=== PATIENT | female | born 1955 | race Caucasian/White ===

== ENCOUNTER → 2020-10-15 13:39 | Outpatient (CLI) | payer OTHER, SELFPAY ==
--- NOTE | 2020-10-15 | DI.MRI.S_ITS ---
PROCEDURE: MR LUMBAR SPINE WO CON INDICATIONS: Spinal stenosis, lumbar region with neurogenic cla TECHNIQUE: Noncontrast sagittal T1 spin echo and T2 fast echo, sagittal STIR, axial T1 and T2 fast spin echo through the lumbar spine. In cases with scoliosis, additional coronal T2 fast spin echo may be performed. COMPARISON: [facility], CR, XR LUMBAR SPINE WITH OLBIQUES PLUS FLEXION EXTENSION, 09/22/2020, 15:52. FINDINGS: Image quality: Excellent. Alignment and Curvature: There is normal bony alignment. Bone Marrow: Marrow is of normal overall signal. Increased T1 and T2 signal is present at T11 and S2 consistent with hemangioma. No acute vertebral body compression fractures. Spinal Cord: Conus medullaris terminates at the L1-L2 level. Visualized cord demonstrates normal signal and size. Tarlov cyst is noted at S1-S2. Paraspinous Soft Tissues: No paravertebral masses. Discs: [id number] desiccation is present throughout the lumbar spine most severe at L5-S1. L1-L2: Mild disc bulge without spinal stenosis or foraminal narrowing. Mild facet hypertrophy. L2-L3: Mild disc bulge without spinal stenosis. Minimal to mild right and minimal left foraminal narrowing with facet and ligamentum flavum hypertrophy. Minimal epidural lipomatosis. L3-L4: Mild disc bulge without spinal stenosis. Minimal bilateral foraminal narrowing with facet and ligamentum flavum hypertrophy. L4-L5: Mild disc bulge with mild spinal stenosis. Utci-em-dcuhbwan left and mild right foraminal narrowing with facet and ligamentum flavum hypertrophy. L5-S1: Mild disc bulge without spinal stenosis. Mild left foraminal narrowing. Facet and ligamentum flavum hypertrophy are present. IMPRESSION: 1. Multilevel foraminal narrowing most notable at L4-5 secondary to facet/ligamentum flavum arthropathy. 2. Multilevel disc bulges as well as spinal stenosis lateral most notable at L4-5 secondary to disc bulge with contributing effect facet/ligamentum flavum arthropathy. Dictated by: Siria Ortega M.D. on 10/15/2020 at 17:11 Approved by: Siria Ortega M.D. on 10/15/2020 at 17:15
== END ==
PROVIDERS: PCP Internal Medicine; Referring Provider Physical Medicine & Rehabilitation Pain Medicine; Visit Provider Physical Medicine & Rehabilitation Pain Medicine
DX: M48.062 Spinal stenosis, lumbar region with neurogenic claudication (principal); M47.816 Spondylosis without myelopathy or radiculopathy, lumbar region; M51.26 Other intervertebral disc displacement, lumbar region
CPT/HCPCS: 72148

== ENCOUNTER → 2021-04-20 12:43 | Outpatient (CLI) | payer MEDICARE, OTHER, SELFPAY ==
--- NOTE | 2021-04-20 | DI.MRI.S_ITS ---
PROCEDURE: MR HIP RT W CON INDICATIONS: RIGHT HIP PAIN TECHNIQUE: After the administration of 10 mL of dilute intra-articular Gadolinium contrast, coronal STIR of the bony pelvis; coronal and oblique axial T1 spin echo with fat saturation, axial T2 fast spin echo with fat saturation, sagittal T1 spin echo with and without fat saturation of the involved hip. COMPARISON: [facility], CR, XR PELVIS WITH BILATERAL LATERAL HIPS, 04/07/2021, 14:45. [facility], [place], [place] HIP INJECTION MR/CT RT, 04/20/2021, 14:20. FINDINGS: Image quality: Excellent. Bones and joints: Bone marrow of the pelvic ring and proximal femurs show normal signal throughout. No intraosseous lesions or fractures. No avascular necrosis of the femoral heads. Disc desiccation and facet hypertrophy are seen in the included lower lumbar spine. Tendons and ligaments: There is mild loose stool gluteus medius and minimus tendinosis with a trace overlying trochanteric bursal effusion. A large contralateral left-sided trochanteric bursal effusion is seen on full [id number] coronal images. The proximal iliotibial band appears intact. The iliopsoas tendon appears intact, without adjacent bursal fluid collections. The origin of the hamstring tendon is intact at the ischial tuberosity. The direct and indirect heads of the rectus femoris muscle origin appear intact. Labrum and cartilage: The acetabular labrum appears intact in the absence of intra-articular contrast. A normal variant sublabral foramen is seen at the anterior chondrolabral junction. Cartilage surface of the femoral head appears of normal thickness. There is normal morphology of the femoral head and the acetabulum. Soft tissues: Visualized muscles demonstrate normal bulk and internal signal. Quadratus femoris muscle demonstrates no internal edema to suggest ischiofemoral impingement. The proximal sciatic neurovascular bundle appears intact. The included portions of the pelvis demonstrate no acute abnormality. Small fat containing right inguinal hernia. IMPRESSION: 1. No labral tear or focal high-grade cartilage loss in the right hip. 2. Mild distal right gluteus medius and minimus tendinosis with an overlying trace trochanteric bursal effusion. 3. Large contralateral left trochanteric bursal effusion. The left-sided gluteus tendons are not well evaluated. 4. Small fat containing right inguinal hernia. 5. Mild degenerative changes in the included lower lumbar spine. Dictated by: Taurus Antony M.D. on 04/20/2021 at 20:07 Approved by: Taurus Antony M.D. on 04/20/2021 at 20:15
--- NOTE | 2021-04-20 | DI.RAD.S_ITS ---
PROCEDURE: [place] HIP INJECTION MR/CT RT INDICATIONS: RIGHT HIP PAIN TECHNIQUE: The indications, alternatives, benefits, risks, and complications of the procedure were explained to the patient. Written informed consent was obtained and placed in the chart. The hip was examined fluoroscopically with the legs fixed in slight internal rotation, and a site for needle placement chosen for entry into the hip joint from an anterior approach. Care was taken to locate the common femoral artery and vein beforehand. The skin was prepped and draped in a sterile fashion, and 1% Lidocaine infiltrated from skin down to joint capsule. A spinal needle was inserted into the joint, and a small amount of iodinated contrast media injected to confirm intra-articular placement of the needle tip. This was followed by approximately 10 mL dilute solution of a gadolinium containing MR contrast agent. The needle was removed and a dressing was applied. The patient was given postprocedural instructions and sent to the MR suite for imaging. COMPARISON: None. FINDINGS: A single fluoroscopic spot image demonstrates intra-articular location of injected iodinated contrast. IMPRESSION: Successful fluoroscopically guided administration of dilute Gadolinium solution into the hip joint for MR arthrogram. Dictated by: Lolis Golden MD, PhD on 04/20/2021 at 15:26 Approved by: Lolis Golden MD, PhD on 04/20/2021 at 15:26
== END ==
PROVIDERS: PCP Internal Medicine; Referring Provider Orthopaedic Surgery; Visit Provider Orthopaedic Surgery
DX: M25.551 Pain in right hip (principal); K40.90 Unilateral inguinal hernia, without obstruction or gangrene, not specified as recurrent; M47.816 Spondylosis without myelopathy or radiculopathy, lumbar region; M25.452 Effusion, left hip
CPT/HCPCS: 27093; 73722; 77002

== ENCOUNTER → 2021-04-23 13:08 | Outpatient (CLI) | payer MEDICARE, OTHER, SELFPAY ==
--- NOTE | 2021-04-23 13:10 | DI.RAD.S_ITS ---
PROCEDURE: [place] HIP INJECTION MR/CT LT INDICATIONS: LEFT HIP PAIN TECHNIQUE: The indications, alternatives, benefits, risks, and complications of the procedure were explained to the patient. Written informed consent was obtained and placed in the chart. The hip was examined fluoroscopically with the legs fixed in slight internal rotation, and a site for needle placement chosen for entry into the hip joint from an anterior approach. Care was taken to locate the common femoral artery and vein beforehand. The skin was prepped and draped in a sterile fashion, and 1% Lidocaine infiltrated from skin down to joint capsule. A spinal needle was inserted into the joint, and a small amount of iodinated contrast media injected to confirm intra-articular placement of the needle tip. This was followed by approximately 10 mL dilute solution of a gadolinium containing MR contrast agent. The needle was removed and a dressing was applied. The patient was given postprocedural instructions and sent to the MR suite for imaging. COMPARISON: [facility], CR, XR PELVIS WITH BILATERAL LATERAL HIPS, 04/07/2021, 14:45. [facility], , MR HIP LT W CON, 04/23/2021, 13:56. FINDINGS: A single fluoroscopic spot image demonstrates intra-articular location of injected iodinated contrast. IMPRESSION: Successful fluoroscopically guided administration of dilute Gadolinium solution into the hip joint for MR arthrogram. Dictated by: Kwesi Fatima M.D. on 04/24/2021 at 9:35 Approved by: Kwesi Fatima M.D. on 04/24/2021 at 9:36
--- NOTE | 2021-04-23 13:10 | DI.MRI.S_ITS ---
PROCEDURE: MR HIP LT W CON INDICATIONS: LEFT HIP PAIN TECHNIQUE: After the administration of 10 mL of dilute intra-articular Gadolinium contrast, coronal STIR of the bony pelvis; coronal and oblique axial T1 spin echo with fat saturation, axial T2 fast spin echo with fat saturation, sagittal T1 spin echo with and without fat saturation of the involved hip. COMPARISON: [facility], MR, MR HIP RT W CON, 04/20/2021, 14:33. FINDINGS: Image quality: Excellent. Bones and joints: Bone marrow of the pelvic ring and proximal femurs show normal signal throughout. 5.3 mm T2 hyperintense lesion is seen in the superior acetabulum, compatible with fibrocystic change. No avascular necrosis of the femoral head. Tendons and ligaments: The gluteus medius and minimus tendons appear intact, without associated muscle atrophy. Moderate amount of fluid superficial to the greater trochanter, compatible with bursitis. The nearby proximal iliotibial band also appears intact. The iliopsoas tendon appears intact, without adjacent bursal fluid collections or evidence for impingement syndrome. The origin of the hamstring tendon is intact at the ischial tuberosity, as well as the associated sacrotuberous ligament. The ligamentum teres appears intact where visualized. Labrum and cartilage: Linear signal within the superior labrum (8-7), compatible with tear. Cartilage surface of the femoral head appears of normal thickness. No paralabral cysts. The alpha angle of the femur is abnormal, measuring approximately 59 degrees. Soft tissues: Visualized muscles demonstrate normal bulk and internal signal. Quadratus femoris muscle demonstrates no internal edema to suggest ischiofemoral impingement. The proximal sciatic neurovascular bundle appears normal adjacent to the hamstring tendons. No free pelvic fluid. Bladder wall thickness is normal. IMPRESSION: 1. Moderate trochanter bursitis. 2. Small superior labral tear. 3. Abnormal alpha angle of the femur, which may be exaggerated by positioning. Dictated by: Alan Fuentes M.D. on 04/23/2021 at 16:23 Approved by: Alan Fuentes M.D. on 04/23/2021 at 16:33
== END ==
PROVIDERS: PCP Internal Medicine; Referring Provider Orthopaedic Surgery; Visit Provider Orthopaedic Surgery
DX: M70.62 Trochanteric bursitis, left hip (principal); S73.192A Other sprain of left hip, initial encounter; M25.552 Pain in left hip
CPT/HCPCS: 27093; 73722; 77002